=== PATIENT | male | born 1950 | race Caucasian/White ===

== ENCOUNTER 2018-07-24 12:26 | Inpatient (IN) | payer OTHER ==
--- NOTE | 2018-07-24 12:47 | EDPHY ---
General - History History Review: I reviewed the patient's medical records Smoking Status: Former smoker Time Seen by Provider: 07/24/18 12:37 Narrative: CHIEF COMPLAINT: Hand pain, foot pain, arm pain HISTORY OF PRESENT ILLNESS: Patient presents by EMS with reports of grave disability, hand wounds, or wound. Patient states that he "just has not felt like taking care myself," for many years. He states that he has been sleeping on his floor for greater than a year. He states that he gets up once a day. He urinates into empty alcohol bottles and has his bowel movements on the carpet next to him. He says that he will occasionally go to the grocery store with a friend. He has not eaten in 2 days. He has no chest pain, shortness of breath, cough or headache. He does have severe pain in the hands and feet at times, but is minimal at this time. He does have gouty changes of the hands and feet that he says have worsened over the past week. He has no abdominal pain. He denies feeling suicidal. No other associated complaints or modifying factors. REVIEW OF SYSTEMS: 10 systems were reviewed and negative with the exception of the elements mentioned in the history of present illness. PCP: None SPECIALISTS: None PAST MEDICAL HISTORY: Hypertension, gout PAST SURGICAL HISTORY: No recent surgeries SOCIAL HISTORY: Choose tobacco daily. Six pack beer ingestion daily. Half a pt of Tequila every other day. Lives independently. Has not worked since 1985 FAMILY HISTORY: Noncontributory EXAMINATION: General Appearance: Alert, no distress. Frail and Unkempt. Strong odor a feces. Conversing in complete sentences with me Head: normocephalic, atraumatic Eyes: Pupils equal and round, no conjunctival pallor or injection ENT, Mouth: Mucous membranes dry. Tobacco present throughout his teeth. Very poor dentition. No trismus Neck: Normal inspection, supple, non-tender Respiratory: Mild rhonchi. No wheezing. No crackles. Cardiovascular: Regular rate and rhythm. Pulses are symmetric in the DP, PT and radial. No cyanosis or pallor. Gastrointestinal: Abdomen is soft and nontender Back: Sacral decubitus as below. No bony tenderness. Neurological: A&O, nonfocal, light sensory symmetric upper lower extremities per Skin: Multiple areas of ulceration to the feet, ankles, knees, hips and sacrum. Various stages with no obvious cellulitis, purulence. No full- thickness ulcerations. There is a large area of ulceration to the right upper extremity extending from the elbow to the wrist with some weeping and mild bleeding. Extremities: Multiple tophic changes to the hands, feet and knees bilaterally. No bony tenderness to the heels, knees, elbows or shoulders. Psychiatric: Flat affect. Denies suicidal ideation. DIFFERENTIAL DIAGNOSES: Including but not limited to grave disability, severe gouty arthritis, cellulitis, decubitus , ulceration, sepsis, acute kidney injury, rhabdomyolysis MDM: 12:40 p.m. Extensive gouty arthritis of bilateral hands, knees, feet with multiple areas weeping wound to the right upper extremity. He arrives reportedly covered in fecal material and did undergo decontamination prior to his room. The patient exhibits failure to thrive but denies any psychiatric complaints this time. He originally arrived on an M1 hold for grave disability that has been lifted by Dr. Botello. He exhibits lack of care for himself but he does not meet any SIRS criteria and he is in no acute distress. He is conversing appropriately and cooperatively with me. I do feel he will need admission for extensive wound care and treatment of his gout. Laboratory studies are pending. No acute distress. 1:55 p.m. Laboratory studies returned with mild hyperkalemia 5.2. We will obtain EKG, and he will be placed on typist 2:15 p.m. Case discussed with hospitalist Dr. Kang. She will admit the patient to her service. He is admitted in stable condition. 2:40 p.m. Hospitalist at bedside. He has also been evaluated by wound care nurse with dressings applied. SUPERVISION: Patient was evaluated and examined in conjunction with my secondary supervising physician as documented. We have both examined the patient. CONSULTATION: Hospitalist admission (Edmond Kramer) Medical Decision Making: PHYSICIAN DOCUMENTATION: The patient was evaluated and managed by the Physician Bass Mechanism Maker and myself. I have reviewed the chart and agree with the findings and plan of care as documented, except would not term skin findings on his right arm an ulceration. In addition, I examined the patient myself at 1245. History confirmed as patient had a gout swelling in his right elbow that burst a week ago. Also arrives on a 72 hr hold for grave disability. History confirmed from previous discharge summary dated 05/02/2018 includes history of alcoholism and severe gout. Physical findings as follows: Patient has erythema and skin irritation and breakdown from his forearm extending to his elbow to part way up his right biceps. There is no lymphangitis and no crepitus. Not hot to the touch. Good active ROM of the elbow on that side. 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 The plan for labs and hospital admission a patient who clearly has inability to care for self at home and failure to thrive given his presentation. He does not appear to have acute cellulitis or infection in the ER. His right forearm appears more like a skin or chemical irritation to that area than cellulitis. I did vacate his mental health hold as he appears to be unable to take care of himself, but does not appear to be gravely disabled from a primary psychiatric illness. He is willing to be admitted and consider SNF placement for inability to care for himself independently any longer. I am the secondary supervising physician. (Dante Botello) - Objective Vital Signs: Initial Vital Signs Heart Rate 100 07/24/18 12:52 Respiratory Rate 16 07/24/18 12:52 Blood Pressure 136/86 H 07/24/18 12:52 O2 Sat (%) 98 07/24/18 12:52 O2 Delivery Mode Room Air Allergies/Adverse Reactions: No Known Allergies Allergy (Verified 04/28/18 13:19) Home Medications: Medication Instructions Recorded Allopurinol [Allopurinol 100 MG 100 mg PO DAILY #30 tab 05/02/18 (*)] Ibuprofen [Motrin (*)] 200 mg PO DAILY PRN 07/24/18 Laboratory Results: Laboratory Results 07/24/18 13:24 07/24/18 13:24 07/24/18 07/24/18 13:24 13:24 WBC 12.14 10^3/uL H 10^3/uL (3.80-9.50) RBC 3.37 10^6/uL L 10^6/uL (4.40-6.38) Hgb 11.3 g/dL L g/dL (13.7-17.5) Hct 33.0 % L % (40.0-51.0) MCV 97.9 fL fL (81.5-99.8) MCH 33.5 pg pg (27.9-34.1) MCHC 34.2 g/dL g/dL (32.4-36.7) RDW 12.2 % % (11.5-15.2) Plt Count 428 10^3/uL H 10^3/uL (150-400) MPV 9.5 fL fL (8.7-11.7) Neut % (Auto) 78.4 % H % (39.3-74.2) Lymph % (Auto) 10.5 % L % (15.0-45.0) [place] % (Auto) 9.0 % % (4.5-13.0) Eos % (Auto) 1.2 % % (0.6-7.6) Baso % (Auto) 0.5 % % (0.3-1.7) Nucleat RBC Rel Count 0.0 % % (0.0-0.2) Absolute Neuts (auto) 9.51 10^3/uL H 10^3/uL (1.70-6.50) Absolute Lymphs (auto) 1.28 10^3/uL 10^3/uL (1.00-3.00) Absolute Monos (auto) 1.09 10^3/uL H 10^3/uL (0.30-0.80) Absolute Eos (auto) 0.15 10^3/uL 10^3/uL (0.03-0.40) Absolute Basos (auto) 0.06 10^3/uL 10^3/uL (0.02-0.10) Absolute Nucleated RBC 0.00 10^3/uL 10^3/uL (0-0.01) Immature Gran % 0.4 % % (0.0-1.1) Immature Gran # 0.05 10^3/uL 10^3/uL (0.00-0.10) Sodium 136 mEq/L mEq/L (135-145) Potassium 5.2 mEq/L H mEq/L (3.3-5.0) Chloride 104 mEq/L mEq/L (97-110) Carbon Dioxide 18 mEq/l L mEq/l (22-31) Anion Gap 14 mEq/L mEq/L (6-14) BUN 27 mg/dL H mg/dL (7-23) Creatinine 1.3 mg/dL mg/dL (0.7-1.3) Estimated GFR 55 Glucose 99 mg/dL mg/dL (70-100) Calcium 9.1 mg/dL mg/dL (8.5-10.4) Total Bilirubin 0.5 mg/dL mg/dL (0.1-1.4) Conjugated Bilirubin 0.4 mg/dL mg/dL (0.0-0.5) Unconjugated Bilirubin 0.1 mg/dL mg/dL (0.0-1.1) AST 37 IU/L IU/L (17-59) ALT 25 IU/L IU/L (21-72) Alkaline Phosphatase 172 IU/L H IU/L (38-126) Creatine Kinase 111 IU/L IU/L (0-224) Total Protein 5.7 g/dL L g/dL (6.3-8.2) Albumin 2.6 g/dL L g/dL (3.5-5.0) Lipase 116 IU/L IU/L (23-300) Ethyl Alcohol < 10 mg/dL mg/dL (0-10) Medications Given: Acetaminophen (Tylenol) 650 mg PO Q4HRS PRN PRN Reason: Pain, Mild/Fever, Can Take PO Stop: 01/20/19 15:26 Last Admin: 07/24/18 19:19 Dose: 650 mg Sodium Chloride (Ns) 1,000 mls @ 100 mls/hr IV CONT ALLAN Stop: 01/20/19 15:29 Last Admin: 07/24/18 16:35 Dose: 1,000 mls Discontinued Medications Sodium Chloride (Ns) 1,000 mls @ 0 mls/hr IV EDNOW ONE; Wide Open PRN Reason: Protocol Stop: 07/24/18 13:03 Last Admin: 07/24/18 13:52 Dose: 1,000 mls Departure - Departure Disposition: [facility] Clinical Impression: Hyperkalemia Gout Qualifiers: Gout site: multiple sites Gout etiology: unspecified cause Chronicity: acute Qualified Code(s): M10.9 - Gout, unspecified Decubitus ulcer Qualifiers: Pressure injury location: unspecified location Pressure injury stage: stage 2 Qualified Code(s): L89.92 - Pressure ulcer of unspecified site, stage 2 Condition: Fair
[2018-07-24] MEDS ORDERED: NS 1,000 ML IV ONE (13:02)
[2018-07-24 13:35] LABS: PLATELET COUNT 428 10^3/uL (150-400)
[2018-07-24 13:55] LABS: CREATINE KINASE 111 IU/L (0-224)
--- NOTE | 2018-07-24 14:22 | CPEKG ---
Test Reason : OPEN Blood Pressure : / mmHG Vent. Rate : 085 BPM Atrial Rate : 085 BPM P-R Int : 096 ms QRS Dur : 151 ms QT Int : 245 ms P-R-T Axes : 166 -56 -81 degrees QTc Int : 292 ms sinus rhythm Left bundle branch block Confirmed by Dante Botello ([id number]) on 07/24/2018 2:21:39 PM Referred By: Confirmed By:Dante Botello
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
[2018-07-24] MEDS ORDERED: ONDANSETRON DISINTEGRATING 4 MG TAB PO PRN (15:27)
[2018-07-24] MEDS ORDERED: ONDANSETRON 4 MG/2 ML VIAL IVP PRN (15:27)
[2018-07-24] MEDS ORDERED: HYDROCODONE/APAP 5/325 TAB PO PRN (15:27)
[2018-07-24] MEDS ORDERED: oxyCODONE IR 5 MG TAB PO PRN (15:27)
[2018-07-24] MEDS ORDERED: PROMETHAZINE HCL 25 MG/ML INJ IVP PRN (15:27)
--- NOTE | 2018-07-24 16:26 | PDGENHP ---
History and Physical - Chief Complaint failure to thrive - History of Present Illness 67 yo M with PMH that includes alcohol abuse, prior hospitalization for FTT as well as massive untreated tophaceous gout presenting initially on an M1 hold from police with concerns that patient is not safe at home. He was found in his apartment in severe squalor, he was noted to be having difficulty getting around and appeared to be defecating and urinating on the carpet and in bottles that were scattered around the home. In discussion with the patient he acknowledges that things have gotten very bad over the last several weeks, but he states prior to that he was able to get around and was able to do some shopping etc with assistance. He was started on allopurinol and postassium at his last hospital stay in April and he notes that he thinks that has been giving him diarrhea and that is in part why he was defecating on the floor. He denies fever or chills, he does have multiple open wounds on his bilateral hands and feet and his right elbow that he has been unable to tend to due to his weakness. He notes he has cut down on his drinking due to being unable procure alcohol at times. He states he is willing to consider being placed in a SNF for his safety as he recognizes that his life has become very unsafe at this point. History Information - Allergies/Home Medication List Allergies/Adverse Reactions: No Known Allergies Allergy (Verified 04/28/18 13:19) Home Medications: Ibuprofen [Motrin (*)] 200 mg PO DAILY PRN 07/24/18 [Last Taken Unknown] I have personally reviewed and updated: family history, medical history, social history, surgical history - Past Medical History Additional medical history: severe tophaceous gout. ckd. chronic wounds. protein calorie malnutrition with chronic regurgitation. alcohol abuse. hoarding disorder - Surgical History Reports: no pertinent surgical hx - Family History Positive for: non-pertinent - Social History Smoking Status: Former smoker Alcohol Use: Heavy Drug Use: None Additional social history: lives alone Review of Systems Review of Systems: ROS: 10pt was reviewed & negative except for what was stated in HPI & below Physical Exam Physical Exam: Temp Pulse Resp BP Pulse Ox 36.6 C 89 16 155/92 H 97 07/24/18 16:21 07/24/18 16:21 07/24/18 16:21 07/24/18 16:21 07/24/18 16:21 Constitutional: chronically ill appearing, unkempt, cachectic Eyes: PERRL, anicteric sclera Ears, Nose, Mouth, Throat: poor dentition, dry mucous membranes Cardiovascular: regular rate and rhythym, no murmur, rub, or gallop, No edema Respiratory: no respiratory distress, no rales or rhonchi, clear to auscultation Gastrointestinal: normoactive bowel sounds, soft, non-tender abdomen Genitourinary: no bladder tenderness Skin: warm, erythema, other (scattered excoriations, massive tophaceous gout) Musculoskeletal: no muscle tenderness Neurologic: AAOx3 Psychiatric: interacting appropriately, not anxious, not encephalopathic Lab Data & Imaging Review 07/24/18 13:24 07/24/18 13:24 WBC 12.14 10^3/uL (3.80-9.50) H 07/24/18 13:24 RBC 3.37 10^6/uL (4.40-6.38) L 07/24/18 13:24 Hgb 11.3 g/dL (13.7-17.5) L 07/24/18 13:24 Hct 33.0 % (40.0-51.0) L 07/24/18 13:24 MCV 97.9 fL (81.5-99.8) 07/24/18 13:24 MCH 33.5 pg (27.9-34.1) 07/24/18 13:24 MCHC 34.2 g/dL (32.4-36.7) 07/24/18 13:24 RDW 12.2 % (11.5-15.2) 07/24/18 13:24 Plt Count 428 10^3/uL (150-400) H 07/24/18 13:24 MPV 9.5 fL (8.7-11.7) 07/24/18 13:24 Neut % (Auto) 78.4 % (39.3-74.2) H 07/24/18 13:24 Lymph % (Auto) 10.5 % (15.0-45.0) L 07/24/18 13:24 [place] % (Auto) 9.0 % (4.5-13.0) 07/24/18 13:24 Eos % (Auto) 1.2 % (0.6-7.6) 07/24/18 13:24 Baso % (Auto) 0.5 % (0.3-1.7) 07/24/18 13:24 Nucleat RBC Rel Count 0.0 % (0.0-0.2) 07/24/18 13:24 Absolute Neuts (auto) 9.51 10^3/uL (1.70-6.50) H 07/24/18 13:24 Absolute Lymphs (auto) 1.28 10^3/uL (1.00-3.00) 07/24/18 13:24 Absolute Monos (auto) 1.09 10^3/uL (0.30-0.80) H 07/24/18 13:24 Absolute Eos (auto) 0.15 10^3/uL (0.03-0.40) 07/24/18 13:24 Absolute Basos (auto) 0.06 10^3/uL (0.02-0.10) 07/24/18 13:24 Absolute Nucleated RBC 0.00 10^3/uL (0-0.01) 07/24/18 13:24 Immature Gran % 0.4 % (0.0-1.1) 07/24/18 13:24 Immature Gran # 0.05 10^3/uL (0.00-0.10) 07/24/18 13:24 Sodium 136 mEq/L (135-145) 07/24/18 13:24 Potassium 5.2 mEq/L (3.3-5.0) H 07/24/18 13:24 Chloride 104 mEq/L (97-110) 07/24/18 13:24 Carbon Dioxide 18 mEq/l (22-31) L 07/24/18 13:24 Anion Gap 14 mEq/L (6-14) 07/24/18 13:24 BUN 27 mg/dL (7-23) H 07/24/18 13:24 Creatinine 1.3 mg/dL (0.7-1.3) 07/24/18 13:24 Estimated GFR 55 07/24/18 13:24 Glucose 99 mg/dL (70-100) 07/24/18 13:24 Calcium 9.1 mg/dL (8.5-10.4) 07/24/18 13:24 Total Bilirubin 0.5 mg/dL (0.1-1.4) 07/24/18 13:24 Conjugated Bilirubin 0.4 mg/dL (0.0-0.5) 07/24/18 13:24 Unconjugated Bilirubin 0.1 mg/dL (0.0-1.1) 07/24/18 13:24 AST 37 IU/L (17-59) 07/24/18 13:24 ALT 25 IU/L (21-72) 07/24/18 13:24 Alkaline Phosphatase 172 IU/L (38-126) H 07/24/18 13:24 Creatine Kinase 111 IU/L (0-224) 07/24/18 13:24 Total Protein 5.7 g/dL (6.3-8.2) L 07/24/18 13:24 Albumin 2.6 g/dL (3.5-5.0) L 07/24/18 13:24 Lipase 116 IU/L (23-300) 07/24/18 13:24 Ethyl Alcohol < 10 mg/dL (0-10) 07/24/18 13:24 Visualized and Interpreted EKG results: Yes EKG Interpretation: Positive for: left bundle branch block Assessment & Plan Assessment: Hyperkalemia (Acute) Gout (Acute) Decubitus ulcer (Acute) 67 yo M BIBA with concerns of failure to thrive and multiple chronic wounds related to tophaceous gout # Failure to thrive: patient has been living independently but has gotten so weak and debilitated that his home is in complete squalor at this time, he has been defecating and urinating on the floor and in bottles scattered around his home. He appears quite cachectic, very poor dentition. Feel he is not safe to return to his prior living situation. He was admitted in April with similar concerns but did ultimately return home. CM aware. PT/OT to be involved. 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 Was started on allopurinol in April, given the severity of disease likely too soon to determine if that treatment is working or not. Will continue for now so long as he is able to tolerate. # chronic wounds: associated with above also diffuse excoriated region surrounding right elbow, wound care consulted, nothing appears overtly infected # leukocytosis: without other SIRS criteria at this point, will monitor # thrombocytosis: likely related to chronic inflammation related to chronic wounds as above, monitoring # anemia: mild, will monitor, likely related to anemia of chronic disease # etoh use disorder: BAL negative on exam, patient states he has cut way back on his drinking, will monitor for s/s of w/d, will start mvi/thiamine/folate # IP status, will need > 48 hours stay for eval/mgmt of above Patient new to my care. Old records reviewed and summarized as above. Care plan reviewed with ER doctor and CM as above.
[2018-07-24] MEDS: NS 1,000 ML IV SCH (16:35)
--- NOTE | 2018-07-24 19:08 | ASMTCMCOM ---
CM Note CM Note Notes: Pt presented to the ED via EMS on an M-1 placed by [employer] for being gravely disabled r/t FTT and ETOH abuse. The M-1 was terminated by the ED provider shortly after arrival to the ED. Pt admitted for various tophaceous gout ulcerations and wounds, hyperkalemia, and FTT. Pt lives alone in a 2-story townhome that he owns. Apparently a neighbor called 911 because he hadn't seen him for a long time, there were strong odors of urine/feces outside of pt's door, and his mail was piling up. Pt was admitted to [facility] back in Apr 2018 for similar reasons/concerns re: pt's ability to care for himself. See CM Reports from that admission for additional background info. EMS reports that the pt's home is covered in trash, beer bottles, rotten food, etc. This CM saw photos that EMS and [employer] had taken and pt's home is completely covered with trash, hundreds of beer bottles, tequila bottles, and his kitchen has a counterheight tall pile of trash and bags. In one of the photos there is a walker placed on top of a pile of trash. Pt's clothing is covered in urine and feces. Pt is unkempt, disheveled and malodorous of urine and feces. This CM called and filed a report w/[facility] ([phone]). [facility] was provided the 2W CM # for follow-up Q's/concerns. Back in Apr 2018, [facility] and this CM had both filed reports w/[facility]; an [facility] worker was involved but ultimately pt was discharged home w/resources that he states he did not utilize. Pt states he sleeps on the floor and only inhabits the 1st floor. The shower is on the 2nd floor so it us unknown when he last showered/bathed. Pt states there is a bathroom on the 1st floor and that he is able to get to the bathroom when needed. However, EMS reports that pt has a lot of beer bottles full of urine and there is human feces throughout pt's living area. Spoke w/Officer Vitaliy w/[facility] who was on scene and placed the pt on an M1. Officer Vitaliy states they found the pt lying in his own feces and watching YouTube videos on his phone. They asked him if he was able to stand up on his own and the pt said it would take him about 30 minutes to do so. Officer Vitaliy stated that the pt's home is one of the worst he has ever seen. Officer Vitaliy sent a followup request to their Family and Housing Quality Worker. Pt has not been seen by a medical provider in more than 10 yrs. Pt has been refilling his Allopurinol and Potassium from the Rxns provided to him when d/c'd from [facility] in Apr. Pt has a history of ETOH abuse and states his last drink was this past Sunday. Back in Apr pt had reported decreasing his ETOH intake. Pt states he soon resumed drinking heavily a few weeks after being d/c'd home from [facility] in Apr. Pt states his friends either drive him or he takes the bus to the grocery store. Pt provided contact info for his friends Blu Todd ([phone]) and Twyla Baig ([phone]), and his brother, Al Cordero ([phone]) who lives in [place]. CM offered to call them to notify them of pt's admission but pt states he will contact them directly. Pt has five siblings, including Al, who live in [place], [place], and [place]. Pt says he stays in contact w/Al mostly via text and they mostly just text about football. Pt states Al and his were on a road trip in [place] and [place] this past Fall but he didn't let them come over to the house "because it was a mess," and so he didn't see them. When asked if Al is aware of pt's living condition/situation and ETOH abuse, pt states "I think so but not to any detail or extent." Pt states he just recently got his first Social Security check and that he also now has Medicare Part A (pt states Part B should start in the Spring). Pt states he still would like to talk to someone about Medicaid but per past admission CM notes, pt doesn't qualify for Medicaid. Pt states he has also been pulling from his chcf fund and "so now I have a little smith to pay for someone to come and help me clean my house and sell stuff." Spoke w/pt about the possible need for him to discharge to a SNF and that returning home is not a safe DC plan at this time. Pt verbalizes understanding and states he will remain open to the idea of going to a SNF but also mentioned that he "might be able to get some friends to help me out." Pt appears to have mixed insight into the severity of his situation. Exact DC plan TBD but anticipate DC to SNF. CM to follow. Date Signed: 07/24/2018 07:08 PM Electronically Signed By:Monisha Colin RN
--- NOTE | 2018-07-24 19:14 | ASMTLACE ---
BARRY Acuity / Level of Answers: Yes Care: Did the patient have an inpatient admission? Comorbidities - select Answers: Mild liver or renal all that apply disease Other Notes: HTN, tophaceous gout, gouty arthritis, hx of SILVINO vs CKD # of Emergency department Answers: 1-2 visits in the last 6 months Social determinants Answers: History of substance abuse (ETOH, street drugs, prescription drugs, etc.) Mental health diagnosis (anxiety, depression, pers onality disorders, etc.) Lack of community resources and/or lack of social support (no pcp, lives alone, transportation, toby d) Score: 17 Date Signed: 07/24/2018 07:13 PM Electronically Signed By:Monisha Colin RN
[2018-07-24] MEDS: ACETAMINOPHEN 325 MG TAB PO PRN (19:19)
[2018-07-24] MEDS: NICOTINE 14 MG/24 HR PATCH TD SCH (22:50)
[2018-07-25] MEDS: NS 1,000 ML IV SCH ×2 (03:33→15:22)
[2018-07-25 04:57] LABS: PLATELET COUNT 336 10^3/uL (150-400)
[2018-07-25] MEDS: THIAMINE HCL 100 MG TAB PO SCH (08:54)
[2018-07-25] MEDS: ALLOPURINOL 100 MG TAB PO SCH (08:54)
[2018-07-25] MEDS: FOLIC ACID 1 MG TAB PO SCH (08:55)
[2018-07-25] MEDS: ENOXAPARIN 40 MG/0.4 ML SYR SC SCH (08:55)
[2018-07-25] MEDS: MULTIVITAMINS 1 EACH TAB PO SCH (08:55)
[2018-07-25] MEDS: NICOTINE 14 MG/24 HR PATCH TD SCH (08:55)
--- NOTE | 2018-07-25 09:46 | HOSPPROG ---
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 He appears quite cachectic, very poor dentition. Feel he is not safe to return to his prior living situation. He was admitted in April with similar concerns but did ultimately return home. CM aware. PT/OT to be involved. Will consult Behavioral Health today to assess cognition # massive tophaceous gout: with associated open wounds and severe deformity of bilateral hands/feet and elbow. Was started on allopurinol 100 mg qd in April, given the severity of disease likely too soon to determine if that treatment is working. Will continue 100 mg for now so long as he is able to tolerate. Will order Uric acid level in the AM, Titrate Allopurinol as needed. # chronic wounds: associated with above also diffuse excoriated region surrounding right elbow, wound care consulted, nothing appears overtly infected # leukocytosis: without other SIRS criteria at this point, will monitor # thrombocytosis: likely related to chronic inflammation related to chronic wounds as above, monitoring # anemia: mild, will monitor, likely related to anemia of chronic disease # etoh use disorder: BAL negative on exam, patient states he has cut way back on his drinking, will monitor for s/s of w/d, will start mvi/thiamine/folate # IP status, will need > 48 hours stay for eval/mgmt of above Patient new to my care. Old records reviewed and summarized as above. Care plan reviewed with ER doctor and CM as above. Subjective: Patient reports pain in hands and feet this morning Objective: Vital Signs Temp Pulse Resp BP Pulse Ox 36.8 C 86 16 153/95 H 99 07/25/18 03:40 07/25/18 03:40 07/25/18 03:40 07/25/18 03:40 07/25/18 03:40 Laboratory Results 07/25/18 04:02 07/25/18 04:02 07/24/18 07/25/18 07/26/18 05:59 05:59 05:59 Intake Total 4250 Output Total 150 Balance 4100 - Physical Exam Constitutional: chronically ill appearing, unkempt Eyes: PERRL Ears, Nose, Mouth, Throat: dry mucous membranes Cardiovascular: regular rate and rhythym Respiratory: no respiratory distress Gastrointestinal: soft, non-tender abdomen Skin: warm, erythema Musculoskeletal: joint effusion, joint tenderness, pain with ROM, other ( Massive tophi in b/l hands and feet) Neurologic: AAOx3 Psychiatric: interacting appropriately ICD10 Worksheet Patient Problems: Problems Problem Status Onset Decubitus ulcer Acute Gout Acute Hyperkalemia Acute SILVINO (acute kidney injury) Acute Abscess of foot including toes Acute Alcoholism /alcohol abuse Acute Arthropathy of facet joints at multiple levels Acute Encephalopathy Acute ST segment changes on electrocardiogram Acute Sepsis Acute Sinus tachycardia Acute
--- NOTE | 2018-07-25 14:37 | PDMN ---
Medical Necessity Medical necessity: Pt meets IP criteria per MD and [facility] (Wound and Skin Management); est los >2 mn for ongoing tx and management of massive tophaceous gout with associated open wounds and severe deformity of bilateral hands, feet, and elbow with failure to thrive, anemia and leukocytosis; pt brought in on M1 hold, not safe to return home; requiring wound care consult, therapies, behavioral health consult, IVF, and med management; comorbids etoh abuse, hoarding disorder, CKD, protein calorie deficit.
[2018-07-25] MEDS: ACETAMINOPHEN 325 MG TAB PO PRN (15:21)
--- NOTE | 2018-07-25 15:56 | ASMTCMCOM ---
CM Note CM Note Notes: OT is recommending SNF. PT is pending. CM spoke to Vaishnavi Gonzales w/ [facility] and she reports that they are not able to intervene if pt is decisional. CM spoke to Dr. Forbes and pt is decisional. Vaishnavi reports that [facility] came out last month to evaluate pt and he was decisional. CM called pts brother Al. Al reports that he is not in control of his financial affairs. CM spoke to Keyonna mayorga/ financial counseling and pt has only Medicare part A. Pt cannot enroll in Medicare part b until open enrollment. CM asked if [employer] can screen pt for Medicaid. CM to follow. Plan: TBD Date Signed: 07/25/2018 03:56 PM Electronically Signed By:YANY Israel
[2018-07-26] MEDS ORDERED: NICOTINE POLACRILEX 2 MG GUM B PRN (00:13)
[2018-07-26] MEDS: NICOTINE 21 MG/24 HR PATCH TD SCH ×2 (01:12→08:32)
[2018-07-26] MEDS: THIAMINE HCL 100 MG TAB PO SCH (08:31)
[2018-07-26] MEDS: ENOXAPARIN 40 MG/0.4 ML SYR SC SCH (08:31)
[2018-07-26] MEDS: FOLIC ACID 1 MG TAB PO SCH (08:31)
[2018-07-26] MEDS: ALLOPURINOL 100 MG TAB PO SCH (08:31)
[2018-07-26] MEDS: MULTIVITAMINS 1 EACH TAB PO SCH (08:31)
[2018-07-26] MEDS: ACETAMINOPHEN 325 MG TAB PO PRN ×2 (08:36→17:57)
--- NOTE | 2018-07-26 11:22 | WOCRNPDOC ---
WOCRGildardo Advanced Assessment Note - Skin Integrity Problem, Advanced Assess Right Arm Dressing Type: Open to Air Exudate Amount: Scant Exudate Characteristic(s): Serosanguinous Skin Integrity Problem Comment: Patient just out of the shower and dressings had been removed. Wounds appear to be stable or improving from previous assessment. Per patient report, they look much better and feel better than before, although some are lens generating machine tender. Dressing removal goes well in the shower to help loosen any adherence. Will continue with current POC and wound care will round again next week. Chloé LING in room to finish wound care dressings. Left Lateral Knee Pressure Injury Dressing Type: Open to Air Integumentary Issue Intervention: Dressing Applied, Silver Gel Applied Suzi Wound Tissue: Blanching, Erythema Wound Bed Constitution: Granulation Tissue (80%), Adhered Slough (20%) Wound Edges: Attached Pressure Injury Stage: Stage 3 Pressure Injury Present on Admit: Yes Skin Integrity Problem Comment: Dressings removed in shower to aid with removal. Wounds cleansed with NS and gauze. Periwound prepped with no sting skin protectant. Wounds now show buds of granulation tissue with thin layer of adherent slough. Will continue with current POC. Wound care will round again next week. Left Buttock Pressure Injury Dressing Type: Open to Air Integumentary Issue Intervention: Dressing Applied, Silver Gel Applied Wound Bed Constitution: Stable Eschar Pressure Injury Stage: Unstageable Pressure Injury Present on Admit: Yes Left Greater Trochanter Pressure Injury Dressing Type: Open to Air Integumentary Issue Intervention: Dressing Applied, Silver Gel Applied Suzi Wound Tissue: Blanching, Erythema Suzi Wound Swelling: Mild Wound Bed Color: Red, Yellow Wound Bed Constitution: Granulation Tissue (70%), Adhered Slough (30%) Wound Edges: Attached Pressure Injury Stage: Stage 3 Skin Integrity Problem Comment: Dressings removed in shower to aid with removal. Wounds cleansed with NS and gauze. Periwound prepped with no sting skin protectant. Wounds now show buds of granulation tissue with small amount of adherent slough that is very thin. Will continue with current POC. Wound care will round again next week. Left Illiac Crest Pressure Injury Dressing Type: Open to Air Integumentary Issue Intervention: Dressing Applied, Silver Gel Applied Suzi Wound Tissue: Blanching, Erythema Suzi Wound Swelling: Mild Wound Bed Color: [place], Yellow Wound Bed Constitution: Red/[place] - Non Granular Tissue (50%), Adhered Slough (50 %) Pressure Injury Stage: Unstageable Pressure Injury Present on Admit: Yes Skin Integrity Problem Comment: Dressings removed in shower to aid with removal. Wounds cleansed with NS and gauze. Periwound prepped with no sting skin protectant. Silvasorb applied to wound bed and covered with an allevyn. Will continue with current POC. Wound care will round again next week. Sacrum Pressure Injury Dressing Type: Mepilex Border Dressing Description: Intact, Shadowed Exudate Characteristic(s): Serous Integumentary Issue Intervention: Dressing Applied, Silver Gel Applied Suzi Wound Tissue: Blanching, Erythema Wound Bed Constitution: Mixed Loose & Adhered Slough/Eschar (100%) Pressure Injury Stage: Unstageable Pressure Injury Present on Admit: Yes Bilateral Hand Dressing Type: Open to Air Skin Integrity Problem Comment: Severe gout along joints of all metacarpals and phalanges of bilateral hands. Some areas draining following shower, although drainage has lessened, other areas dry. Bilateral Foot Dressing Type: Open to Air Skin Integrity Problem Comment: Severe gout along joints of phalanges and metatarsals of bilateral feet. Some areas draining following shower, although drainage has lessened, other areas dry.
[2018-07-26] MEDS: NS 1,000 ML IV SCH (12:29)
--- NOTE | 2018-07-26 13:12 | HOSPPROG ---
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 He appears quite cachectic, very poor dentition. Feel he is not safe to return to his prior living situation. He was admitted in April with similar concerns but did ultimately return home. CM aware. PT/OT to be involved. Behavioral Health to assess cognition. At this point, I believe patient has capacity to make his own decisions. [facility] has been contacted by nursing and CM, as long as patient has capacity they have no role to intervene. Patient recommended to SNF by therapy however unlikely to be placed due to lack of insurance. 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 Was started on allopurinol 100 mg qd in April, given the severity of disease likely too soon to determine if that treatment is working. Will continue 100 mg for now so long as he is able to tolerate. Uric acid level 7.7 this Am, will increase Allopurinol to 200 mg qd. # chronic wounds: associated with above also diffuse excoriated region surrounding right elbow, wound care consulted, nothing appears overtly infected # leukocytosis: without other SIRS criteria at this point, will monitor # thrombocytosis: likely related to chronic inflammation related to chronic wounds as above, monitoring # anemia: mild, will monitor, likely related to anemia of chronic disease # etoh use disorder: BAL negative on exam, patient states he has cut way back on his drinking, will monitor for s/s of w/d, will start mvi/thiamine/folate # IP status, will need > 48 hours stay for eval/mgmt of above. Patient will likely be d/c tomorrow after evaluation by behavioral health. Subjective: Patient reports difficulty ambulating with pain in feet b.l Objective: Vital Signs Temp Pulse Resp BP Pulse Ox 36.6 C 67 16 150/76 H 99 07/26/18 12:00 07/26/18 12:00 07/26/18 07:41 07/26/18 12:00 07/26/18 12:00 Laboratory Results 07/26/18 03:30 11/02/18 03:30 07/25/18 07/26/18 07/27/18 05:59 05:59 05:59 Intake Total 4250 1320 Output Total 150 921 450 Balance 4100 399 -450 - Physical Exam Constitutional: chronically ill appearing, unkempt Eyes: PERRL Ears, Nose, Mouth, Throat: dry mucous membranes Cardiovascular: regular rate and rhythym Respiratory: no respiratory distress Gastrointestinal: soft, non-tender abdomen Skin: warm, erythema Musculoskeletal: joint effusion, joint tenderness, pain with ROM, other ( massive tophi in hands and feet b/l) Neurologic: AAOx3 Psychiatric: interacting appropriately ICD10 Worksheet Patient Problems: Problems Problem Status Onset Decubitus ulcer Acute Gout Acute Hyperkalemia Acute SILVINO (acute kidney injury) Acute Abscess of foot including toes Acute Alcoholism /alcohol abuse Acute Arthropathy of facet joints at multiple levels Acute Encephalopathy Acute ST segment changes on electrocardiogram Acute Sepsis Acute Sinus tachycardia Acute
--- NOTE | 2018-07-26 14:50 | ASMTCMCOM ---
CM Note CM Note Notes: Roxana from [facility] (P# [phone]) stopped by today to meet w/ pt. Roxana reports that she would like for pt to have the behavioral health consult. CM left a msg for Aileen Shea. Roxana reports that they are not able to intervene if pt is decisional. Roxana reports that they use a psychologist to determine decisionality. Roxana will call to see if he has any availabilities. Pts friend stopped by to visit w/ pt. Pts friend stopped by pts home and collected his mail and brought it to the hospital. [employer] stopped by and screened pt. Pt does not qualify for Medicare at this time because he is over income. CM to follow. Plan: TBD Date Signed: 07/26/2018 02:49 PM Electronically Signed By:YANY Israel
--- NOTE | 2018-07-26 17:05 | ASMTCMCOM ---
CM Note CM Note Notes: Roxana with [facility] was able to schedule for Andrew, the psychologist to come to do an assessment to determine decisional capacity for 07/02 at 6:15PM. Roxana's cell is [phone]. CM to follow. Date Signed: 07/26/2018 05:04 PM Electronically Signed By:YANY Israel
[2018-07-27] MEDS: ACETAMINOPHEN 325 MG TAB PO PRN ×3 (06:22→20:42)
[2018-07-27] MEDS ORDERED: amLODIPine BESYLATE 5 MG TAB PO SCH (09:00)
[2018-07-27] MEDS: ENOXAPARIN 40 MG/0.4 ML SYR SC SCH (09:00)
[2018-07-27] MEDS: NS 1,000 ML IV SCH (09:00)
[2018-07-27] MEDS: NICOTINE 21 MG/24 HR PATCH TD SCH (09:00)
[2018-07-27] MEDS: ALLOPURINOL 100 MG TAB PO SCH (09:01)
[2018-07-27] MEDS: MULTIVITAMINS 1 EACH TAB PO SCH (09:01)
[2018-07-27] MEDS: FOLIC ACID 1 MG TAB PO SCH (09:01)
[2018-07-27] MEDS: THIAMINE HCL 100 MG TAB PO SCH (09:01)
--- NOTE | 2018-07-27 12:34 | HOSPPROG ---
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 He appears quite cachectic, very poor dentition. Feel he is not safe to return to his prior living situation. He was admitted in April with similar concerns but did ultimately return home. CM aware. PT/OT to be involved, recommending SNF, however per CM patient does not have insurance coverage to pay for outpatient services. Behavioral Health to assess cognition on Sunday, Jul.29. At this point, I believe patient has capacity to make his own decisions. [facility] has been contacted by nursing and CM, as long as patient has capacity they have no role to intervene. Patient to continue to work with OT and PT to determine strategy to ambulate and succeed at home. 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 Was started on allopurinol 100 mg qd in April, given the severity of disease likely too soon to determine if that treatment is working. Will continue 100 mg for now so long as he is able to tolerate. Uric acid level 7.7 on 07/26, increased Allopurinol to 200 mg qd. # chronic wounds: associated with above also diffuse excoriated region surrounding right elbow, wound care consulted, nothing appears overtly infected # leukocytosis: without other SIRS criteria at this point, will monitor # thrombocytosis: likely related to chronic inflammation related to chronic wounds as above, monitoring # anemia: mild, will monitor, likely related to anemia of chronic disease # etoh use disorder: BAL negative on exam, patient states he has cut way back on his drinking, will monitor for s/s of w/d, will start mvi/thiamine/folate # IP status, patient not currently safe to be discharged home due to inability to care for himself 2/2 to massive tophaceous gout and deconditioning. Subjective: Patient reports some improvement in joint paint this AM Objective: Vital Signs Temp Pulse Resp BP Pulse Ox 36.9 C 84 18 176/73 H 96 07/27/18 07:36 07/27/18 07:36 07/27/18 07:36 07/27/18 07:36 07/27/18 07:36 Laboratory Results 07/26/18 03:30 07/26/18 03:30 07/26/18 07/27/18 07/28/18 05:59 05:59 04:59 Intake Total 1320 2550 Output Total 921 950 200 Balance 399 1600 -200 - Physical Exam Constitutional: chronically ill appearing, unkempt Eyes: PERRL Ears, Nose, Mouth, Throat: dry mucous membranes Cardiovascular: regular rate and rhythym Respiratory: no respiratory distress Gastrointestinal: soft, non-tender abdomen Genitourinary: No kebede in urethra Musculoskeletal: joint effusion, joint tenderness, pain with ROM Neurologic: AAOx3 Psychiatric: interacting appropriately ICD10 Worksheet Patient Problems: Problems Problem Status Onset Decubitus ulcer Acute Gout Acute Hyperkalemia Acute SILVINO (acute kidney injury) Acute Abscess of foot including toes Acute Alcoholism /alcohol abuse Acute Arthropathy of facet joints at multiple levels Acute Encephalopathy Acute ST segment changes on electrocardiogram Acute Sepsis Acute Sinus tachycardia Acute
--- NOTE | 2018-07-27 17:50 | ASMTCMCOM ---
CM Note CM Note Notes: Spoke with Shara Gates from [facility] today. Communicated that our hospitalist has deemed pt decisional without question and pt will likely not be here until the when [facility]'s psychologist was scheduled to visit and determine decisional capacity. [facility] to close the case if pt is decisional. Spoke with pt, physician and RN regarding pt's ETOH abuse and possible depression leading to his inability to be compliant with treatment and his unsafe filthy living conditions. Pt not able to discharge to SNF due to lack of Medicare B coverage, but is open to possible inpatient psych for ETOH recovery and depression treatment. Left message with [facility] inpatient of [facility] which has a senior [facility] unit with current availability and also addiction tx with no current availability. They accept medicare. Julissa returned my call, but we were unable to discuss. [facility] is [phone]. CM to follow up with them. Hospitalist to order psych eval for referral purposes. Pt here likely until Sunday. CM to follow. D/C Plan: Home with [facility] or Inpatient Behavioral Rehab at [facility] Date Signed: 07/27/2018 05:50 PM Electronically Signed By:Gali Nassar
[2018-07-28] MEDS: ENOXAPARIN 40 MG/0.4 ML SYR SC SCH (09:42)
[2018-07-28] MEDS: ALLOPURINOL 100 MG TAB PO SCH (09:43)
[2018-07-28] MEDS: THIAMINE HCL 100 MG TAB PO SCH (09:43)
[2018-07-28] MEDS: NICOTINE 21 MG/24 HR PATCH TD SCH (09:43)
[2018-07-28] MEDS: FOLIC ACID 1 MG TAB PO SCH (09:43)
[2018-07-28] MEDS: amLODIPine BESYLATE 5 MG TAB PO SCH (09:43)
[2018-07-28] MEDS: MULTIVITAMINS 1 EACH TAB PO SCH (09:43)
--- NOTE | 2018-07-28 12:17 | HOSPPROG ---
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 He appears quite cachectic, very poor dentition. Feel he is not safe to return to his prior living situation. He was admitted in April with similar concerns but did ultimately return home. CM aware. PT/OT to be involved, recommending SNF, however per CM patient does not have insurance coverage to pay for outpatient services. [facility] to assess cognition on Sunday, Jul.29. At this point, I believe patient has capacity to make his own decisions. APS has been contacted by nursing and CM, as long as patient has capacity they have no role to intervene. Patient to continue to work with OT and PT to determine strategy to ambulate and succeed at home. 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 Was started on allopurinol 100 mg qd in April, given the severity of disease likely too soon to determine if that treatment is working. Will continue 100 mg for now so long as he is able to tolerate. Uric acid level 7.7 on 07/26, increased Allopurinol to 200 mg qd. #L shoulder pain: Reports pain after fall, s/p XR yesterday which was negative for acute abnormality, continue to monitor # chronic wounds: associated with above also diffuse excoriated region surrounding right elbow, wound care consulted, nothing appears overtly infected # leukocytosis: without other SIRS criteria at this point, will monitor # thrombocytosis: likely related to chronic inflammation related to chronic wounds as above, monitoring # anemia: mild, will monitor, likely related to anemia of chronic disease # etoh use disorder: BAL negative on exam, patient states he has cut way back on his drinking, will monitor for s/s of w/d, will start mvi/thiamine/folate, psych to see patient for potential IP admission # IP status, patient not currently safe to be discharged home due to inability to care for himself 2/2 to massive tophaceous gout and deconditioning. CM following Subjective: Patient reports pain in L shoulder Objective: Vital Signs Temp Pulse Resp BP Pulse Ox 36.8 C 69 16 170/95 H 98 07/28/18 11:57 07/28/18 11:57 07/28/18 11:57 07/28/18 11:57 07/28/18 11:57 Laboratory Results 07/26/18 03:30 07/26/18 03:30 07/27/18 07/28/18 07/29/18 06:59 05:59 05:59 Intake Total 500 Output Total Balance 500 - Physical Exam Constitutional: no apparent distress, chronically ill appearing, unkempt Eyes: PERRL Ears, Nose, Mouth, Throat: moist mucous membranes Cardiovascular: regular rate and rhythym Respiratory: no respiratory distress Gastrointestinal: soft, non-tender abdomen Skin: abrasion Musculoskeletal: joint effusion, joint tenderness, pain with ROM Neurologic: AAOx3 Psychiatric: interacting appropriately ICD10 Worksheet Patient Problems: Problems Problem Status Onset Decubitus ulcer Acute Gout Acute Hyperkalemia Acute SILVINO (acute kidney injury) Acute Abscess of foot including toes Acute Alcoholism /alcohol abuse Acute Arthropathy of facet joints at multiple levels Acute Encephalopathy Acute ST segment changes on electrocardiogram Acute Sepsis Acute Sinus tachycardia Acute
--- NOTE | 2018-07-28 14:52 | CPEKG ---
Test Reason : OPEN Blood Pressure : / mmHG Vent. Rate : 087 BPM Atrial Rate : 085 BPM P-R Int : 161 ms QRS Dur : 154 ms QT Int : 424 ms P-R-T Axes : 050 -44 111 degrees QTc Int : 510 ms Sinus rhythm Atrial premature complex Left bundle branch block Confirmed by Phoenix Ham ([id number]) on 07/28/2018 2:51:43 PM Referred By: Confirmed By:Phoenix Ham
[2018-07-28] MEDS: ACETAMINOPHEN 325 MG TAB PO PRN (22:42)
[2018-07-29] MEDS: ENOXAPARIN 40 MG/0.4 ML SYR SC SCH (09:24)
[2018-07-29] MEDS: NICOTINE 21 MG/24 HR PATCH TD SCH (09:25)
[2018-07-29] MEDS: MULTIVITAMINS 1 EACH TAB PO SCH (09:25)
[2018-07-29] MEDS: amLODIPine BESYLATE 5 MG TAB PO SCH (09:25)
[2018-07-29] MEDS: ALLOPURINOL 100 MG TAB PO SCH (09:25)
[2018-07-29] MEDS: THIAMINE HCL 100 MG TAB PO SCH (09:25)
[2018-07-29] MEDS: FOLIC ACID 1 MG TAB PO SCH (09:25)
[2018-07-29] MEDS: ACETAMINOPHEN 325 MG TAB PO PRN ×3 (12:32→22:42)
--- NOTE | 2018-07-29 13:40 | HOSPPROG ---
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 He appears quite cachectic, very poor dentition. Feel he is not safe to return to his prior living situation. He was admitted in April with similar concerns but did ultimately return home. CM aware. PT/OT to be involved, recommending SNF, however per CM patient does not have insurance coverage to pay for outpatient services. Behavioral Health to assess cognition today, Sunday , Jul.29. At this point, I believe patient has capacity to make his own decisions. APS has been contacted by nursing and CM, as long as patient has capacity they have no role to intervene. Patient to continue to work with OT and PT to determine strategy to ambulate and succeed at home. 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 Was started on allopurinol 100 mg qd in April, given the severity of disease likely too soon to determine if that treatment is working. Will continue 100 mg for now so long as he is able to tolerate. Uric acid level 7.7 on 07/26, increased Allopurinol to 200 mg qd. #L shoulder pain: Reports pain after fall, s/p XR on 07/27 which was negative for acute abnormality, continue to monitor # chronic wounds: associated with above also diffuse excoriated region surrounding right elbow, wound care consulted, nothing appears overtly infected # leukocytosis: without other SIRS criteria at this point, will monitor # thrombocytosis: likely related to chronic inflammation related to chronic wounds as above, monitoring # anemia: mild, will monitor, likely related to anemia of chronic disease # etoh use disorder: BAL negative on exam, patient states he has cut way back on his drinking, will monitor for s/s of w/d, will start mvi/thiamine/folate, psych to see patient for potential IP admission # IP status, patient not currently safe to be discharged home due to inability to care for himself 2/2 to massive tophaceous gout and deconditioning. CM following Subjective: Patient reports pain in R shoulder this AM Objective: Vital Signs Temp Pulse Resp BP Pulse Ox 36.4 C 67 14 163/87 H 96 07/29/18 12:00 07/29/18 12:00 07/29/18 12:00 07/29/18 12:00 07/29/18 12:00 Laboratory Results 07/26/18 03:30 07/26/18 03:30 07/28/18 07/29/18 07/30/18 05:59 05:59 05:59 Intake Total 2240 Output Total 1000 Balance 1240 - Physical Exam Constitutional: chronically ill appearing Eyes: PERRL Ears, Nose, Mouth, Throat: moist mucous membranes Cardiovascular: regular rate and rhythym Respiratory: no respiratory distress Gastrointestinal: soft, non-tender abdomen Genitourinary: No kebede in urethra Skin: abrasion, other (multiple areas covered with gauze ) Musculoskeletal: joint effusion, joint tenderness, pain with ROM Neurologic: AAOx3 Psychiatric: interacting appropriately ICD10 Worksheet Patient Problems: Problems Problem Status Onset Decubitus ulcer Acute Gout Acute Hyperkalemia Acute SILVINO (acute kidney injury) Acute Abscess of foot including toes Acute Alcoholism /alcohol abuse Acute Arthropathy of facet joints at multiple levels Acute Encephalopathy Acute ST segment changes on electrocardiogram Acute Sepsis Acute Sinus tachycardia Acute
--- NOTE | 2018-07-29 14:14 | WOCRNPDOC ---
WOCRN Advanced Assessment Note - Skin Integrity Problem, Advanced Assess Right Arm Dressing Type: Open to Air Exudate Amount: Scant Exudate Characteristic(s): Serosanguinous Wound Bed Color: Brown, Red Wound Bed Constitution: Scab Skin Integrity Problem Comment: Patient recently out of shower. Arm is mostly scabbed. Improved from last assessment. Will discontinue vashe, no evidence of infection. Will begin using wound gel to aid in moist wound healing. Rose LING in room for care. Chloé LING updated. Wound care will round again next week. Left Lateral Knee Pressure Injury Dressing Type: Open to Air Exudate Amount: Scant Exudate Characteristic(s): Serous Wound Bed Color: [place], Yellow Wound Bed Constitution: Granulation Tissue (95%), Adhered Slough (5%) Wound Edges: Epithelizing Site Measurement - Head-to-Toe Length X Width X Depth (cm): two wounds charted as one, proximal 2.5x1.8x0.2, distal 1.4x1x0.2 Pressure Injury Stage: Stage 3 Pressure Injury Present on Admit: Yes Skin Integrity Problem Comment: Healing stage 3 pressure injuries. The proximal one is 100% granulation tissue and the distal one is 90% granulation/10% adhered slough. Left Buttock Pressure Injury Dressing Type: Allevyn Life Dressing Description: Clean/Dry, Intact Exudate Amount: Scant Exudate Characteristic(s): Serous Integumentary Issue Intervention: Visualized Under Dressing Wound Bed Color: Brown, Red Wound Bed Constitution: Granulation Tissue (70%), Mixed Loose & Adhered Slough/ Eschar (30%) Site Measurement - Head-to-Toe Length X Width X Depth (cm): 1.7x1.5xslough/ eschar Pressure Injury Stage: Stage 3 Pressure Injury Present on Admit: Yes Skin Integrity Problem Comment: Wound cleansed with NS and gauze. Wound is improving. Left Greater Trochanter Pressure Injury Dressing Type: Allevyn Life Dressing Description: Clean/Dry, Intact Exudate Amount: Scant Exudate Characteristic(s): Serous Integumentary Issue Intervention: Visualized Under Dressing Wound Bed Color: Red Wound Bed Constitution: Granulation Tissue (100%) Wound Edges: Epithelizing Site Measurement - Head-to-Toe Length X Width X Depth (cm): Two wounds that are by less than 1cm, total size 3.2x8 Pressure Injury Stage: Stage 3 Pressure Injury Present on Admit: Yes Skin Integrity Problem Comment: Wound is improving and is now 100% granulation tissue. Wound care will round again next week. Left Illiac Crest Pressure Injury Dressing Type: Allevyn Life Dressing Description: Clean/Dry, Intact Integumentary Issue Intervention: Visualized Under Dressing Wound Bed Color: Red, Yellow Wound Bed Constitution: Granulation Tissue (90%), Loose Slough (10%) Wound Edges: Epithelizing Site Measurement - Head-to-Toe Length X Width X Depth (cm): 1x4.3 Pressure Injury Stage: Stage 3 Pressure Injury Present on Admit: Yes Skin Integrity Problem Comment: Wound bed is improving and now comprised of 90% granulation tissue and 10% slough. Wound care will round again next week. Sacrum Pressure Injury Dressing Type: Mepilex Border Dressing Description: Clean/Dry, Intact Integumentary Issue Intervention: Visualized Under Dressing Wound Bed Color: Red, Yellow Wound Bed Constitution: Granulation Tissue (80%), Loose Slough (20%) Site Measurement - Head-to-Toe Length X Width X Depth (cm): 2.2x3.4xslough Pressure Injury Stage: Stage 3 Pressure Injury Present on Admit: Yes Skin Integrity Problem Comment: Cleansed with NS and gauze. Mechanical debridement of some slough achieved. Wound is improving. Left Lateral 5th Metatarsal Head Dressing Type: Open to Air Exudate Amount: Minimal Exudate Characteristic(s): Serosanguinous Suzi Wound Tissue: Swollen Wound Bed Color: [place], White Wound Bed Constitution: Red/[place] - Non Granular Tissue Site Measurement - Head-to-Toe Length X Width X Depth (cm): 1.3x2.7x0.4 Skin Integrity Problem Comment: Wound is comprised of a combination of pink non- granular tissue (9 o'clock) and uric crystals (3 o'clock).
--- NOTE | 2018-07-29 16:14 | ASMTCMCOM ---
CM Note CM Note Notes: 07/29/2018 Case Management Note Met w/pt to discuss d/c needs. Pt agreeable to SNF placement. Phone call to financial counseling to meet with pt to explain when he can register for Medicare Part B. Pt plans for [employer] to clean his apartment prior to returning home. Pt is considering designating a family member or friend to supervise [employer] while he is hospitalized. Faxed referrals to a small number of SNFs at pt request. Payment remains an issue. Monica wen [facility] met w/tpt and informed case management that first 20 days of SNF will be covered even without part B active. Faxed referrals to LTAC d/t wounds. [facility] assessing patient. Several calls from family members. Pt verbally consented to info shared with sister in law Hutchins. Pt verbally consented to info shared with Julissa Cordero [phone]. Aileen Shea consult today. Please see her note for details. Case Management d/c poc: LTAC vs SNF rehab pending acceptance. Case Management to follow. Date Signed: 07/29/2018 04:13 PM Electronically Signed By:Karen Gonzáles RN
[2018-07-30] MEDS: ACETAMINOPHEN 325 MG TAB PO PRN ×3 (04:17→23:31)
[2018-07-30] MEDS: ENOXAPARIN 40 MG/0.4 ML SYR SC SCH (07:56)
[2018-07-30] MEDS: FOLIC ACID 1 MG TAB PO SCH (07:57)
[2018-07-30] MEDS: ALLOPURINOL 100 MG TAB PO SCH (07:57)
[2018-07-30] MEDS: MULTIVITAMINS 1 EACH TAB PO SCH (07:57)
[2018-07-30] MEDS: NICOTINE 21 MG/24 HR PATCH TD SCH (07:57)
[2018-07-30] MEDS: amLODIPine BESYLATE 5 MG TAB PO SCH (07:57)
[2018-07-30] MEDS: THIAMINE HCL 100 MG TAB PO SCH (09:41)
--- NOTE | 2018-07-30 11:15 | HOSPPROG ---
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 He appears quite cachectic, very poor dentition. Feel he is not safe to return to his prior living situation. He was admitted in April with similar concerns but did ultimately return home. CM aware. PT/OT to be involved, recommending SNF, however per CM patient does not have insurance coverage to pay for outpatient services. Behavioral Health to assess cognition today, Sunday , Jul.29. At this point, I believe patient has capacity to make his own decisions. APS has been contacted by nursing and CM, as long as patient has capacity they have no role to intervene. CM working on placement. 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 Was started on allopurinol 100 mg qd in April, given the severity of disease likely too soon to determine if that treatment is working. Will continue 100 mg for now so long as he is able to tolerate. Uric acid level 7.7 on 07/26, increased Allopurinol to 200 mg qd. #L shoulder pain: Reports pain after fall, s/p XR on 07/27 which was negative for acute abnormality, continue to monitor # chronic wounds: associated with above also diffuse excoriated region surrounding right elbow, wound care consulted, nothing appears overtly infected # leukocytosis: without other SIRS criteria at this point, will monitor # thrombocytosis: likely related to chronic inflammation related to chronic wounds as above, monitoring # anemia: mild, will monitor, likely related to anemia of chronic disease # etoh use disorder: BAL negative on exam, patient states he has cut way back on his drinking, will monitor for s/s of w/d, will start mvi/thiamine/folate, psych to see patient for potential IP admission # IP status, patient not currently safe to be discharged home due to inability to care for himself 2/2 to massive tophaceous gout and deconditioning. CM following Subjective: Patient reports R shoulder pain this AM Objective: Vital Signs Temp Pulse Resp BP Pulse Ox 36.7 C 94 18 182/85 H 93 07/30/18 08:00 07/30/18 08:00 07/30/18 08:00 07/30/18 08:00 07/30/18 08:00 Laboratory Results 07/26/18 03:30 07/26/18 03:30 07/29/18 07/30/18 07/31/18 05:59 05:59 05:59 Intake Total 2240 1743 Output Total 1000 675 500 Balance 1240 1068 -500 - Physical Exam Constitutional: chronically ill appearing Eyes: PERRL Ears, Nose, Mouth, Throat: moist mucous membranes Cardiovascular: regular rate and rhythym Respiratory: no respiratory distress Gastrointestinal: soft, non-tender abdomen Genitourinary: No kebede in urethra Skin: erythema, other (Massive topacheous gout) Musculoskeletal: joint effusion, joint tenderness, pain with ROM Neurologic: AAOx3 Psychiatric: interacting appropriately ICD10 Worksheet Patient Problems: Problems Problem Status Onset Decubitus ulcer Acute Gout Acute Hyperkalemia Acute SILVINO (acute kidney injury) Acute Abscess of foot including toes Acute Alcoholism /alcohol abuse Acute Arthropathy of facet joints at multiple levels Acute Encephalopathy Acute ST segment changes on electrocardiogram Acute Sepsis Acute Sinus tachycardia Acute
--- NOTE | 2018-07-30 15:11 | ASMTCMCOM ---
CM Note CM Note Notes: 07/30/2018 Case Management Note Met w/pt to discuss discharge plans. [facility] assessed pt today. Sven Birch will need to speak with administrators and will be getting back to case management. Informed pt that [facility] accepted pt. Pt has arranged [facility] for quote on services. Pt requested case management contact Blu Renetta (friend) [phone] to have Blu meet [facility]. Pt has friend Leeann Baig coming for dinner [employer] [phone] who may also be able to meet [facility]. Left VM for Shara Gates with APS. Waiting for return call. Case Management d/c poc: [facility]. Case Management to follow. Date Signed: 07/30/2018 03:11 PM Electronically Signed By:Karen Gonzáles RN
[2018-07-31 07:56] VITALS: BP 156/79
--- NOTE | 2018-07-31 09:05 | PDIAF ---
- Diagnosis Diagnosis: Failure to thrive, [place] Gout Code Status: Full Code - Medication Management Discharge Medications: electronically signed and located in the Home Medication List. - Orders Services needed: Home Care, Certified Outside Salesperson, Master Footwear Sales Coordinator, Physical Therapy, Occupational Therapy Home Care Face to Face: I certify that this patient was under my care and that I had the required [id number] encounter meeting the encounter requirements on the discharge day. My findings support the fact that the patient is homebound as defined in Home Care Face to Face Continued: CMS Chapter 7 Medicare Benefits Manual 30.1.1 , The condition of the patient is such that there exists a normal inability to leave home and consequently, leaving home would require a considerable and taxing effort. Additional Instructions: Please contact [facility] for an appointment, at , for follow up and care of your wounds. Change dressings to: L: iliac crest, knee, greater trochanter, great toe, lateral foot, Sacrum, R heel, R medial foot every 3 days and prn. Change dressings to all wounds listed above every 3 days and prn. 1. Clean with ns and gauze 2. Wound gel to wound beds/scabs 3. Cover with Allevyn Life (border foam) or for foot wounds use Mepilex 4x4 ( non border foam for arms)that you cut down and secure with medipore tape or kerlix as necessary/depending on the body part. Rose Castro CWON - Labs/Radiology Other Lab Name, Date and Time: Uric Acid Level 08/14, if >6 increase dose of Allopurinol to 300 mg qd - Follow Up Care Current Providers and Referrals: Patient,NotPresent [Primary Care Provider] - As per Instructions
--- NOTE | 2018-07-31 09:09 | PDDCSUM ---
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 He appears quite cachectic, very poor dentition. Feel he is not safe to return to his prior living situation. He was admitted in April with similar concerns but did ultimately return home. CM, PT/OT involved, recommending SNF. Behavioral Health to assessed cognition. I believe patient has capacity to make his own decisions. APS has been contacted by nursing and CM, as long as patient has capacity they have no role to intervene. Patient to be d/c to SNF for continued care including wound. 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 Was started on allopurinol 100 mg qd in April, given the severity of disease likely too soon to determine if that treatment is working. Will continue 100 mg for now so long as he is able to tolerate. Uric acid level 7.7 on 07/26, increased Allopurinol to 200 mg qd. Repeat uric acid in 2 weeks, increase dose of Allopurinol to 300 mg. # L shoulder pain: Reports pain after fall, s/p XR on 07/27 which was negative for acute abnormality, continue to monitor # chronic wounds: associated with above also diffuse excoriated region surrounding right elbow, wound care consulted, nothing appears infected # leukocytosis: without other SIRS criteria at this point # thrombocytosis: likely related to chronic inflammation related to chronic wounds as above, monitoring # anemia: mild, will monitor, likely related to anemia of chronic disease # etoh use disorder: BAL negative on exam, patient states he has cut way back on his drinking, will monitor for s/s of w/d, continue mvi/thiamine/folate Time spent on discharge was >35 minutes with >50% of time spent on patient education and counseling.
[2018-07-31] MEDS: FOLIC ACID 1 MG TAB PO SCH (09:46)
[2018-07-31] MEDS: ALLOPURINOL 100 MG TAB PO SCH (09:46)
[2018-07-31] MEDS: amLODIPine BESYLATE 5 MG TAB PO SCH (09:46)
[2018-07-31] MEDS: MULTIVITAMINS 1 EACH TAB PO SCH (09:46)
[2018-07-31] MEDS: THIAMINE HCL 100 MG TAB PO SCH (09:46)
[2018-07-31] MEDS: NICOTINE 21 MG/24 HR PATCH TD SCH (09:46)
[2018-07-31] MEDS: ENOXAPARIN 40 MG/0.4 ML SYR SC SCH (09:47)
[2018-07-31] MEDS: ACETAMINOPHEN 325 MG TAB PO PRN ×2 (09:55→13:55)
--- NOTE | 2018-07-31 14:22 | ASDISCHSUM ---
Discharge Information Plan Status:SNF Medically Cleared to Leave:07/30/2018 Discharge Date:07/30/2018 CM D/C Disposition:Detention Facility ADT D/C Disposition:Detention Facility Projected Discharge Date:07/29/2018 11:00 AM Transportation at D/C:ALS/BLS Discharge Delay Reason: Follow-Up Date:07/29/2018 11:00 AM Discharge Slot: Final Diagnosis: Placement Information Referral Type:Psychiatric Hospital or Unit Referral ID:[id number] Provider Name: Address 1: Phone Number: Address 2: Fax Number: City: Selection Factors: State: Referral Type:*Fdc/SNF Referral ID:[id number] Provider Name:[facility] Address 1:[address] Address 2: City:[place] Selection Factors: State:[place] Referral Type:Fdc [facility] Referral ID:[id number] Provider Name: Address 1: Phone Number: Address 2: Fax Number: City: Selection Factors: State: Patient Contact Information Contact Name:FRED Relationship:Friend Address: Work Phone: City: [facility] Phone: State/Zip Code: Email: Financial Information Financial Class:Medicare Primary Plan Desc:MEDICARE INPATIENT Primary Plan Number:[id number] Secondary Plan Desc: Secondary Plan Number: Assessment Information [facility] CM Progress Note CM Note CM Note Notes: Pt presented to the ED via EMS on an M-1 placed by [facility] for being gravely disabled r/t FTT and ETOH abuse. The M-1 was terminated by the ED provider shortly after arrival to the ED. Pt admitted for various tophaceous gout ulcerations and wounds, hyperkalemia, and FTT. Pt lives alone in a 2-story townhome that he owns. Apparently a neighbor called 911 because he hadn't seen him for a long time, there were strong odors of urine/feces outside of pt's door, and his mail was piling up. Pt was admitted to [facility] back in Apr 2018 for similar reasons/concerns re: pt's ability to care for himself. See CM Reports from that admission for additional background info. EMS reports that the pt's home is covered in trash, beer bottles, rotten food, etc. This CM saw photos that EMS and [employer] had taken and pt's home is completely covered with trash, hundreds of beer bottles, tequila bottles, and his kitchen has a counterheight tall pile of trash and bags. In one of the photos there is a walker placed on top of a pile of trash. Pt's clothing is covered in urine and feces. Pt is unkempt, disheveled and malodorous of urine and feces. This CM called and filed a report w/[facility] ([phone]). [facility]PS was provided the 2W CM # for follow-up Q's/concerns. Back in Apr 2018, [employer] and this CM had both filed reports w/[facility]; an APS worker was involved but ultimately pt was discharged home w/resources that he states he did not utilize. Pt states he sleeps on the floor and only inhabits the 1st floor. The shower is on the 2nd floor so it us unknown when he last showered/bathed. Pt states there is a bathroom on the 1st floor and that he is able to get to the bathroom when needed. However, EMS reports that pt has a lot of beer bottles full of urine and there is human feces throughout pt's living area. Spoke w/Officer Vitaliy w/[employer] who was on scene and placed the pt on an M1. Officer Vitaliy states they found the pt lying in his own feces and watching [employer] videos on his phone. They asked him if he was able to stand up on his own and the pt said it would take him about 30 minutes to do so. Officer Vitaliy stated that the pt's home is one of the worst he has ever seen. Officer Vitaliy sent a followup request to their [employer]. Pt has not been seen by a medical provider in more than 10 yrs. Pt has been refilling his Allopurinol and Potassium from the Rxns provided to him when d/c'd from [facility] in Apr. Pt has a history of ETOH abuse and states his last drink was this past Sunday. Back in Apr pt had reported decreasing his ETOH intake. Pt states he soon resumed drinking heavily a few weeks after being d/c'd home from [facility] in Apr. Pt states his friends either drive him or he takes the bus to the grocery store. Pt provided contact info for his friends Blu Todd ([phone]) and Twyla Baig ([phone]), and his brother, Al Cordero ([phone]) who lives in [place]. CM offered to call them to notify them of pt's admission but pt states he will contact them directly. Pt has five siblings, including Al, who live in [place], [place], and [place]. Pt says he stays in contact w/Al mostly via text and they mostly just text about football. Pt states Al and his were on a road trip in [place] and [place] this past Fall but he didn't let them come over to the house "because it was a mess," and so he didn't see them. When asked if Al is aware of pt's living condition/situation and ETOH abuse, pt states "I think so but not to any detail or extent." Pt states he just recently got his first Social Security check and that he also now has Medicare Part A (pt states Part B should start in the Spring). Pt states he still would like to talk to someone about Medicaid but per past admission CM notes, pt doesn't qualify for Medicaid. Pt states he has also been pulling from his alf fund and "so now I have a little smith to pay for someone to come and help me clean my house and sell stuff." Spoke w/pt about the possible need for him to discharge to a SNF and that returning home is not a safe DC plan at this time. Pt verbalizes understanding and states he will remain open to the idea of going to a SNF but also mentioned that he "might be able to get some friends to help me out." Pt appears to have mixed insight into the severity of his situation. Exact DC plan TBD but anticipate DC to SNF. CM to follow. Date Signed: 07/24/2018 07:08 PM Electronically Signed By:Monisha Colin RN LACE LACE Acuity / Level of Answers: Yes Care: Did the patient have an inpatient admission? Comorbidities - select Answers: Mild liver or renal all that apply disease Other Notes: HTN, tophaceous gout, gouty arthritis, hx of SILVINO vs CKD # of Emergency department Answers: 1-2 visits in the last 6 months Social determinants Answers: History of substance abuse (ETOH, street drugs, prescription drugs, etc.) Mental health diagnosis (anxiety, depression, pers onality disorders, etc.) Lack of community resources and/or lack of social support (no pcp, lives alone, transportation, toby d) Score: 17 Date Signed: 07/24/2018 07:13 PM Electronically Signed By:Monisha Colin RN [facility] Progress Note CM Note CM Note Notes: OT is recommending SNF. PT is pending. PAULINO spoke to Vaishnavi mayorga/ [facility] and she reports that they are not able to intervene if pt is decisional. PAULINO spoke to Dr. Forbes and pt is decisional. Vaishnavi reports that [facility] came out last month to evaluate pt and he was decisional. CM called pts brother Al. Al reports that he is not in control of his financial affairs. PAULINO spoke to Keyonna mayorga/ financial counseling and pt has only Medicare part A. Pt cannot enroll in Medicare part b until open enrollment. CM asked if [employer] can screen pt for Medicaid. CM to follow. Plan: TBD Date Signed: 07/25/2018 03:56 PM Electronically Signed By:YANY Israel [facility] CM Progress Note CM Note CM Note Notes: Roxana from [facility] (P# [phone]) stopped by today to meet w/ pt. Roxana reports that she would like for pt to have the behavioral health consult. CM left a msg for Aileen Shea. Roxana reports that they are not able to intervene if pt is decisional. Roxana reports that they use a psychologist to determine decisionality. Roxana will call to see if he has any availabilities. Pts friend stopped by to visit w/ pt. Pts friend stopped by pts home and collected his mail and brought it to the hospital. [employer] stopped by and screened pt. Pt does not qualify for Medicare at this time because he is over income. CM to follow. Plan: TBD Date Signed: 07/26/2018 02:49 PM Electronically Signed By:YANY Israel [facility] CM Progress Note CM Note CM Note Notes: Roxana with [facility] was able to schedule for Andrew the psychologist to come to do an assessment to determine decisional capacity for 07/02 at 6:15PM. Roxnaa's cell is [phone]. CM to follow. Date Signed: 07/26/2018 05:04 PM Electronically Signed By:YANY Israel [facility] CM Progress Note CM Note CM Note Notes: Spoke with Shara Gates from [facility] today. Communicated that our hospitalist has deemed pt decisional without question and pt will likely not be here until the when [facility]'s psychologist was scheduled to visit and determine decisional capacity. [facility]PS to close the case if pt is decisional. Spoke with pt, physician and RN regarding pt's ETOH abuse and possible depression leading to his inability to be compliant with treatment and his unsafe filthy living conditions. Pt not able to discharge to SNF due to lack of Medicare B coverage, but is open to possible inpatient psych for ETOH recovery and depression treatment. Left message with [facility] inpatient [facility] which [facility] with current availability and also addiction tx with no current availability. They accept medicare. Julissa returned my call, but we were unable to discuss. [facility] is [phone]. CM to follow up with them. Hospitalist to order psych eval for referral purposes. Pt here likely until Sunday. CM to follow. D/C Plan: Home with [facility] or Inpatient Behavioral Rehab at [facility] Date Signed: 07/27/2018 05:50 PM Electronically Signed By:Gali Nassar [facility] Progress Note CM Note CM Note Notes: 07/29/2018 Case Management Note Met w/pt to discuss d/c needs. Pt agreeable to SNF placement. Phone call to financial counseling to meet with pt to explain when he can register for Medicare Part B. Pt plans for [employer] to clean his apartment prior to returning home. Pt is considering designating a family member or friend to supervise [employer] while he is hospitalized. Faxed referrals to a small number of SNFs at pt request. Payment remains an issue. Monica from [facility] met w/tpt and informed case management that first 20 days of SNF will be covered even without part B active. Faxed referrals to LTAC d/t wounds. [facility] assessing patient. Several calls from family members. Pt verbally consented to info shared with sister in law Hutchins. Pt verbally consented to info shared with Julissa Cordero [phone]. Aileen Shea consult today. Please see her note for details. Case Management d/c poc: LTAC vs SNF rehab pending acceptance. Case Management to follow. Date Signed: 07/29/2018 04:13 PM Electronically Signed By:Karen Gonzáles RN [facility] CM Progress Note CM Note CM Note Notes: 07/30/2018 Case Management Note Met w/pt to discuss discharge plans. [facility] assessed pt today. Sven Birch will need to speak with administrators and will be getting back to case management. Informed pt that [facility] SNF rehab accepted pt. [facility] on services. Pt requested case management contact Blu Jackson (friend) [phone] to have Blu meet [employer]. Pt has friend Leeann Baig coming for dinner [employer] [phone] who may also be able to meet [employer]. Left VM for Shara Gates with [facility]. Waiting for return call. Case Management d/c poc: [facility] SNF rehab. Case Management to follow. Date Signed: 07/30/2018 03:11 PM Electronically Signed By:Karen Gonzáles RN Case Management Discharge Plan Note Case Management Discharge Discharge Order Complete? Answers: Yes Patient to Obtain Answers: Other Notes: [facility] SNF rehab Medications Transportation Arranged Answers: [facility] Stretcher Transport will Pick (Date 07/31/2018 05:00 PM & Time) Case Management Transport Answers: Yes Notes: [facility] requested Form Complete stretcher transport Faxed Final Orders Answers: Yes Notes: to [facility] Agency/Facility Transfer Answers: Yes Notes: to [facility] Report Printed & Faxed to Receiving Agency Discharge Comments Notes: 07/31/2018 Case Management Note Pt to discharge to [facility] SNF rehab. Transport arranged by Monica at [facility]. Monica requesting stretcher transport d/t difficulties facility would have transferring pt from wheelchair d/t feet deformities and inability to stand. [facility] stretcher transport to arrive at 1700. PCS form completed. Notified APS worker Kody of d/c. Kody closed the case based on Aileen Shea note finding pt to be decisional. Kody states" pt is able to make poor choices and live in those conditions if he chooses". Pt plans to proceed with [employer] fixing apartment while pt is at [facility]. Friend Blu West to assist patient with coordinating [employer]. Provided information for the [facility] on [facility]ging as well as the [facility] to assist pt with applying for Medicare Part B. Date Signed: 07/31/2018 02:21 PM Electronically Signed By:Karen Gonzáles RN Intervention Information Intervention Type:Adult Protective Services Date of Service:07/24/2018 07:14 PM Patient Type:Inpatient Staff Member:ANURADHA Colin Sharon Hours:0.5 Discipline:Design Consultant Severity: Comment:
--- NOTE | 2018-07-31 14:22 | ASMTDCNOTE ---
Case Management Discharge Discharge Order Complete? Answers: Yes Patient to Obtain Answers: Other Notes: [facility] SNF rehab Medications Transportation Arranged Answers: [facility] Stretcher Transport will Pick (Date 07/31/2018 05:00 PM & Time) Case Management Transport Answers: Yes Notes: [facility] requested Form Complete stretcher transport Faxed Final Orders Answers: Yes Notes: to [facility] Agency/Facility Transfer Answers: Yes Notes: to [facility] Report Printed & Faxed to Receiving Agency Discharge Comments Notes: 07/31/2018 Case Management Note Pt to discharge to [facility] SNF rehab. Transport arranged by Monica at [facility]. Monica requesting stretcher transport d/t difficulties facility would have transferring pt from wheelchair d/t feet deformities and inability to stand. [facility] stretcher transport to arrive at 1700. PCS form completed. Notified APS worker Kody of d/c. Kody closed the case based on Aileen Shea note finding pt to be decisional. Kody states" pt is able to make poor choices and live in those conditions if he chooses". Pt plans to proceed with [employer] fixing apartment while pt is at [facility]. Friend Blu West to assist patient with coordinating [employer]. Provided information for the [facility] Agency on Aging as well as the [facility] to assist pt with applying for Medicare Part B. Date Signed: 07/31/2018 02:21 PM Electronically Signed By:Karen Gonzáles RN
[2018-07-31] MEDS ORDERED: PNEUMOC 13-VAL CONJ-DIP CRM/PF 0.5 ML SYR IM ONE (17:04)
[2018-08-02 07:49] LABS: 25-HYDROXY D2 <4.0 ng/mL
== END 2018-07-31 17:32 | DRG 553 ==
LOC: EDUNIT# → F2W 16:00
PROVIDERS: ADMIT Internal Medicine; ATTEND Internal Medicine
DX: M1A.9XX1 Chronic gout, unspecified, with tophus (tophi) (principal); L89.223 Pressure ulcer of left hip, stage 3; L89.893 Pressure ulcer of other site, stage 3; L89.320 Pressure ulcer of left buttock, unstageable; L89.150 Pressure ulcer of sacral region, unstageable; R62.7 Adult failure to thrive; E86.9 Volume depletion, unspecified; Z23 Encounter for immunization; E87.5 Hyperkalemia; M25.512 Pain in left shoulder; W19.XXXA Unspecified fall, initial encounter; D47.3 Essential (hemorrhagic) thrombocythemia; D63.8 Anemia in other chronic diseases classified elsewhere
CPT/HCPCS: 82306-90; 97116-GP; 97163-GP; 97166-GO; 97530-GO; 97530-GP; 97535-GO; G0008; G0009; G0480; G8978-GP-CL; G8979-GP-CI; G8987-GO-CL; G8988-GO-CK; J1650